=== PATIENT | female | born 1985 | race Caucasian/White ===

== ENCOUNTER 2020-09-05 05:35 | Inpatient (IN) | payer OTHER ==
[~2020-09-05] VITALS: Ht 154.9 cm; Wt 68.0 kg
[2020-09-05] MEDS ORDERED: PRENATAL TABLE1 EAC1 PO (05:58)
[2020-09-05] MEDS ORDERED: ECOTRIN81 MG PO (05:59)
[2020-09-05] MEDS ORDERED: TYLENOL ARTHRI650 MG PO (06:00)
== END 2020-09-07 18:16 | disposition left against medical advice (07) | DRG 833 ==
LOC: OBS/DEL 05:35 → LDR 07:29 → OBS/DEL 07:29 → OB/GYN 07:29
PROVIDERS: ADMIT Obstetrics & Gynecology; ATTEND Obstetrics & Gynecology
PROC: BT43ZZZ Ultrasonography of Bilateral Kidneys (ICD-10-PCS; principal; 2020-09-05)
PROC: BY4CZZZ Ultrasonography of Second Trimester, Single Fetus (ICD-10-PCS; 2020-09-05)
DX: O26.832 Pregnancy related renal disease, second trimester (principal); N20.0 Calculus of kidney; Z20.828 Contact with and (suspected) exposure to other viral communicable diseases; Z3A.23 23 weeks gestation of pregnancy